=== PATIENT | female | born 1995 | race Caucasian/White ===

== ENCOUNTER 2023-10-11 20:35 | Emergency (ER) | payer BC ==
[~2023-10-11] VITALS: Ht 190.5 cm; Wt 87.0 kg
[2023-10-11] MEDS ORDERED: BUPIVACAINE HCL 0.5% 30 ML VIAL ONE (20:55)
[2023-10-11] MEDS ORDERED: BUPIVACAINE 0.5% DENTAL PRN (21:00)
[2023-10-11] MEDS ORDERED: EPI DENTAL PRN (21:00)
[2023-10-11] MEDS ORDERED: PREDNISONE20 MG PO (21:12)
[2023-10-11] MEDS ORDERED: HYDROCODONE BIT/ACETAMINOPHEN 5/325 MG 1 TAB HOME.PACK PO ONE (21:15)
[2023-10-11] MEDS ORDERED: predniSONE 20 MG TAB PO ONE (21:15)
[2023-10-11 21:33] VITALS: BP 137/84
== END 2023-10-11 21:34 | disposition home or self-care (01) ==
LOC: ED 20:35
DX: K04.7 Periapical abscess without sinus (principal); B02.9 Zoster without complications
CPT/HCPCS: A9270; J7512